=== PATIENT | female | born 1960 | race Caucasian/White ===

== ENCOUNTER 2020-08-18 13:29 | Emergency (ER) | payer OTHER, SELFPAY ==
[~2020-08-18] VITALS: Ht 170.2 cm; Wt 77.1 kg
[2020-08-18 14:06] VITALS: BP 113/72; Ht 170.2 cm; Wt 77.1 kg
== END 2020-08-18 15:05 | disposition home or self-care (01) ==
LOC: ED 13:29
DX: U07.1 COVID-19 (principal)
CPT/HCPCS: U0003